=== PATIENT | male | born 1935 | race Caucasian/White ===

== ENCOUNTER 2019-06-14 19:34 | Inpatient (IN) | payer MEDICARE, OTHER ==
[~2019-06-14] VITALS: Ht 170.2 cm; Wt 61.7 kg
[2019-06-14 21:04] VITALS: BP 139/75; PULSE 109; TEMP 98.1
[2019-06-14] MEDS ORDERED: COUMADIN 22.5 MG/TAB PO (21:31)
[2019-06-14] MEDS ORDERED: COUMADIN 5MG5 MG/TAB PO (21:33)
[2019-06-14 21:34] LABS: HEMATOCRIT 42.2 % (42.0-52.0); HEMOGLOBIN 14.2 g/dl (13.5-18.0); MEAN CELL VOLUME 97 fl (80.0-100.0); MEAN CORPUSCULAR HEMOGLOBIN 33 pg (27.0-31.0); MEAN CORPUSCULAR HGB CONC 34 g/dl (33.0-37.0); MEAN PLATELET VOLUME 9.6 fl (7.4-10.4); PLATELET COUNT 186 K/mm3 (130-400); RED BLOOD COUNT 4.34 M/mm3 (4.20-5.60); REDCELL DISTRIBUTION WIDTH-CV 13.2 % (11.5-14.5)
[2019-06-14] MEDS ORDERED: DIGOXIN PO (21:35)
[2019-06-14] MEDS ORDERED: DILTIAZEM PO (21:35)
[2019-06-14 21:39] LABS: ALBUMIN 3.6 gm/dL (3.5-5.0); BILIRUBIN,TOTAL 0.6 mg/dL (0.0-1.0); CALCIUM 9.1 mg/dL (8.4-10.2); CREATININE, serum 0.71 (0.66-1.25); POTASSIUM 3.8 mmol/L (3.4-5.0); TOTAL PROTEIN 6.6 gm/dL (6.4-8.2)
[2019-06-14 22:03] LABS: BAND 3 % (0-10); EOSINOPHIL 3 % (0-4); LYMPHOCYTE 39 % (20.0-51.0); METAMYELOCYTE 3 % (0-0); NEUTROPHILS 39 % (42.0-75.2)
[2019-06-14 22:06] LABS: PLATELET ESTIMATE NORMAL (NORMAL)
[2019-06-14 22:07] LABS: STOMATOCYTE 1+
[2019-06-14] MEDS ORDERED: CARDIZEM CD 24240 MG PO (22:10)
[2019-06-14] MEDS ORDERED: LANOXIN 0.25M0.25 MG PO (22:11)
[2019-06-14 23:37] LABS: PARTIAL THROMBOPLASTIN TIME 64.4 SECONDS (26.0-37.0)
[2019-06-15] VITALS (539 sets, daily range): BP systolic 97–138; BP diastolic 63–101; PULSE 68–118; TEMP 97.7–98.6; O2SAT 87–99
[2019-06-15 02:28] LABS: COLLECTION METHOD CLEAN CATCH
--- NOTE | 2019-06-15 02:32 | NUR ---
1944 - RECEIVED REPORT FROM RUIZ GARDNER OF [facility]. 2049 - PT ARRIVED IN UNIT VIA STRETCHER ESCORTED BY EMS. PT TRANSFERRED SELF FROM STRETCHER TO BED INDENPENEDENTLY. PT'S VSS, DENIES ANY PAIN OR SOB. PT ORIENTED TO ROOM AND HOSPITAL'S BASIC POLICY. CALL LIGHT AND ALL NECESSARY ITEMS PLACED WITHIN REACH. PT ON HEPARIN DRIP UPON ARRIVAL RUNNING AT 10.4 ML/HR. 2114 - DR. ESCOBAR NOTIFIED OF PT'S ARRIVAL AND VERBALIZED WILL SEE PT LATER.
[2019-06-15 02:33] LABS: MUCOUS Present /lpf; PH 6 (5-8); SQUAMOUS EPITHELIAL None Seen /hpf; URINE APPEARANCE Clear; URINE BACTERIA None Seen /hpf; URINE BILIRUBIN Negative (NEGATIVE); URINE BLOOD Negative (NEGATIVE); URINE COLOR Yellow; URINE GLUCOSE Negative (NEGATIVE); URINE KETONE Negative (NEGATIVE); URINE LEUKOCYTE ESTERASE Negative (NEGATIVE); URINE NITRATE Negative (NEGATIVE); URINE PROTEIN(semi-quant) Negative (NEGATIVE); URINE RBC 0-2 /hpf
--- NOTE | 2019-06-15 02:38 | NUR ---
HEPARIN DOSE READJUSTED PER NEW ORDER AT 2335 PREVIOUS BAG IS FROM [facility] AND RUNNING AT 10.4 ML/HR. NEW RATE AT 7.8 ML/HR ORDRED. THIS WAS CLARRIFIED WITH DR. ESCOBAR UPON PT'S AARIVAL THAT HE WANTS PT TO REMAIN ON HEPARIN DRIP. AT 2330, THIS RN NOTICED THAT THERE WAS STILL NO ORDERS FOR THE HEPARIN DRIP HENCE DR. ESCOBAR WAS NOTIFIED AND PUT IN SOME ORDERS.
--- NOTE | 2019-06-15 02:44 | NUR ---
0040 - DR. ESCOBAR AT BEDSIDE TO MEET AND EVALUATE PT. AT THIS TIME, PT'S HR JUMPING FROM 120-150'S FOR ABOUT 30 MINS ALREADY. METOPROLOL ORDERED AND WAS GIVEN.
--- NOTE | 2019-06-15 02:47 | NUR ---
0230 - HEPARIN DOSE READJUSTED TO 8 ML/ HR PHARMACY RE-ADJUSTED ORDER. MEDICATION SETTINGS VERIFIED WITH RUIZ ZALDIVAR AT BEDSIDE.
--- NOTE | 2019-06-15 03:26 | NUR ---
PER TELE, PT HAD ATLEAST [address] ESCOBAR NOTIFIED AND ORDERED EKG DONE NOW INSTEAD OF 0700. ALSO, PT'S URINE OUTPUT ONLY AT 100 SINCE ADMISSION AND REPORTED TO MD, NO NEW ORDERS GIVEN AT THIS TIME AND WILL RE-EVALUATE IN THE MORNING.
[2019-06-15 06:24] LABS: CALCIUM 8.3 mg/dL (8.4-10.2); CREATININE, serum 0.66 (0.66-1.25); POTASSIUM 3.8 mmol/L (3.4-5.0)
[2019-06-15 06:38] LABS: TROPONIN-I 4.12 ng/mL (0.000-0.035)
--- NOTE | 2019-06-15 07:34 | NUR ---
report given to RUIZ Denny.
--- NOTE | 2019-06-15 07:58 | NUR ---
SEE MERGE FOR MEDICATION ADMINISTRATION TIMES AND INTRA AND POST SEDATION ASSESSMENTS.
[2019-06-15 08:32] LABS: PATHOLOGY DIFF REVIEW OK
--- NOTE | 2019-06-15 10:00 | NUR ---
Patient is back from his procedure. He is alert and oriented. He denies pain to right arm. Denies shortness of breath. CMS intact to right hand. TR band in place. Explained to patient that he has to keep his right arm laying flat for 2 hours and not to use his hand. Patient verbalized understanding. Vital signs stable. Patient is asking about eating breakfast. No other changes at this time. Will continue to monitor.
--- NOTE | 2019-06-15 10:30 | NUR ---
Pateint needs constant reminders to no use his right arm or hand he is trying to use his hand. No bleeding at site. Patient denies pain and nausea. No shortness of breath.
--- NOTE | 2019-06-15 11:11 | NUR ---
SW met with the patient to discuss discharge plan. The patient lives alone in [place]. He states that he has a lot of friend support in town. His good friend and the person he rents from, Fabio Stephen (ph#[phone]), lives in his building. He reports independence with ADLs and does not have any DME. He states that he lives an active lifestyle. The patient's PCP is Dr. Eduar Mireles and he receives his medications on [place]. He reports no difficulties obtaining his meds. The patient does not have advanced directives completed. He states that he only has one living child. His daughter, Parvin Rodriguez. He reports that she lives in [place]. He states that she is always busy and hard to get a hold of. She states the best way to get a hold of her is by contacting her , Reid Rodriguez (ph#[phone]). The patient plans to return back home upon discharge. Transport to be provided by a friend. No additional needs at this time.
--- NOTE | 2019-06-15 12:15 | NUR ---
Attempted to realease 5ml of air from patient TR band and patient started to bleeding. Replaced 5ml of air and the bleeding stopped. Reminded patient again to try keeping his arm down and not to use it. No other changes at this time. Call light within reach.
--- NOTE | 2019-06-15 13:00 | NUR ---
Attempted to remove air from TR band again. Patient started bleeding again. Replaced air. Explained to patient will try again later and to continue to keep arm down. Patient verbalized understanding. No questions verbalized. Call light within reach.
--- NOTE | 2019-06-15 15:00 | NUR ---
Was able remove 5ml of air from TR band without bleeding. Explained to patient that will remove more in about 30 mins. Patient verbalized understanding. CMS intact to right hand. Patient stated the site is sore, explained that is normal from the puncture site. No other changes at this time. Call light within reach.
--- NOTE | 2019-06-15 16:00 | NUR ---
Was finally able to get the TR band off without bleeding patient tolerated well. CMS intact to right hand. No bleeding to puncture site. Patient is resting comfortably at this time. No complaints of pain or nausea. No other changes at this time. Call light within reach.
--- NOTE | 2019-06-15 19:00 | NUR ---
Patient has been doing well this afternoon. Denies pain and nausea. His heart rate started to jump in the 140's and was irregular. Gave a dose of his cardizem. He did not get a dose this morning before his procedure. No other changes at this time. Call light within reach. Notified Jarett Sandhu APRN about his heart rate.
--- NOTE | 2019-06-15 19:48 | NUR ---
Bedside report received from RUIZ Denny
--- NOTE | 2019-06-15 20:00 | NUR ---
Patient awake and resting in bed playing on his phone. He is A+Ox4 and very pleasant. No complaints of pain or SOA. Assessment complete. No significant findings other than patient being in AFIB and heart rate being irregular and intermittently tachycardic. Right radial cath site is covered by bandaid, area remains soft and dressing clean and dry. Patient voids per the urinal. Vitals are stable and patient has no further needs at this time. Will continue to monitor. Call light within reach.
[2019-06-16] VITALS (374 sets, daily range): BP systolic 105–112; BP diastolic 62–74; PULSE 86–99; TEMP 98–98.2; O2SAT 80–99
--- NOTE | 2019-06-16 | NUR ---
Patient asleep at this time and awakens to name. Vitals obtained and remain stable. No complaints of pain. Radial site remains the same. He requests some pudding and crackers, provided. No further needs. Will continue to monitor.
[2019-06-16 05:26] LABS: BASO % 0.4 % (0.0-2.0); EOS # 0.2 (0.0-0.7); EOS % 3.6 % (0-4.0); GRAN # 2.2 (1.4-6.5); GRAN % 40.4 % (42.2-75.2); HEMATOCRIT 42.7 % (42.0-52.0); HEMOGLOBIN 14.4 g/dl (13.5-18.0); LYMPH # 2.1 (1.2-3.4); LYMPH % 38.2 % (20.0-51.0); MEAN CELL VOLUME 97 fl (80.0-100.0); MEAN CORPUSCULAR HEMOGLOBIN 33 pg (27.0-31.0); MEAN CORPUSCULAR HGB CONC 34 g/dl (33.0-37.0); MEAN PLATELET VOLUME 9.7 fl (7.4-10.4); MONO # 0.9 (0.1-0.6); PLATELET COUNT 188 K/mm3 (130-400); REDCELL DISTRIBUTION WIDTH-CV 13.3 % (11.5-14.5)
[2019-06-16 05:36] LABS: CALCIUM 8.5 mg/dL (8.4-10.2); CREATININE, serum 0.68 (0.66-1.25); POTASSIUM 3.8 mmol/L (3.4-5.0)
--- NOTE | 2019-06-16 08:34 | NUR ---
Bedside report given to RUIZ Piper
--- NOTE | 2019-06-16 09:18 | NUR ---
Pt assessment complete. Pt is laying in bed upon entry, he is A/O x4. His breathing is even and unlabored on RA. Pt denies SOB. No pain at this time. Site to R radial CDI mild eccymosis. Pt continues to be in Afib c RVR. POC discussed with patient. PT in to work with patient at this time.
[2019-06-16] MEDS ORDERED: ASPIRIN E.C. 8181 MG PO (09:21)
[2019-06-16] MEDS ORDERED: CARDIZEM CD 12120 MG PO (09:22)
[2019-06-16] MEDS ORDERED: NITROSTAT0.4 MG/TAB SL (09:23)
[2019-06-16] MEDS ORDERED: LIPITOR20 MG PO (09:23)
[2019-06-16] MEDS ORDERED: PLAVIX 75MG TAB75 MG PO (09:24)
[2019-06-16] MEDS ORDERED: ELIQUIS 5MG PO (09:24)
--- NOTE | 2019-06-16 11:45 | NUR ---
Discharge paperwork and instructions reviewed with patient. All questions answered at this time. IV to LAC dc'd catheter tip intact. Pt walked out of facility at this time.
== END 2019-06-16 11:45 | disposition home or self-care (01) | DRG 247 ==
LOC: IMCU 19:34 → EU 06-15 10:45 → IMCU 06-15 10:45 → EU 06-15 11:05 → IMCU 06-16 11:40
PROVIDERS: Physician Assistant; Student in an Organized Health Care Education/Training Program
PROC: 027135Z Dilation of Coronary Artery, Two Arteries with Two Drug-eluting Intraluminal Devices, Percutaneous Approach (ICD-10-PCS; principal; 2019-06-15)
PROC: 4A023N7 Measurement of Cardiac Sampling and Pressure, Left Heart, Percutaneous Approach (ICD-10-PCS; 2019-06-15)
PROC: B2111ZZ Fluoroscopy of Multiple Coronary Arteries using Low Osmolar Contrast (ICD-10-PCS; 2019-06-15)
DX: I21.4 Non-ST elevation (NSTEMI) myocardial infarction (principal); I48.91 Unspecified atrial fibrillation; I25.110 Atherosclerotic heart disease of native coronary artery with unstable angina pectoris; Z79.01 Long term (current) use of anticoagulants; Z87.891 Personal history of nicotine dependence; E78.5 Hyperlipidemia, unspecified
CPT/HCPCS: 99222-AI; 99232-AI; 99239; C1725; C1769; C1874; C1887; C9600; J1644; J2250; J3010; Q9967